=== PATIENT | female | born 1965 | race Caucasian/White ===

== ENCOUNTER → 2022-04-28 15:32 | Outpatient (CLI) | payer OTHER, SELFPAY ==
--- NOTE | 2022-04-28 15:34 | DI.CT.S_ITS ---
PROCEDURE: CT LUMBAR SPINE WO CON INDICATIONS: Low back pain, unspecified TECHNIQUE: Noncontrast 3 mm thick sections acquired from the T12 level to the sacrum. Sagittal and coronal reformats were constructed. For radiation dose reduction, the following was used: automated exposure control. COMPARISON: None. FINDINGS: Image quality: Excellent. Bones: There is loss of normal lumbar lordosis. There is roughly 7 mm of retrolisthesis of L4 on L5. There is severe disc space narrowing at L4-L5 associated with moderate adjacent discogenic osteosclerosis at L4 and L5. Mild facet hypertrophy at L4-L5. There is moderate diffuse disc bulge present at L4-L5. There is moderate canal stenosis , moderate left foraminal stenosis, and severe right foraminal stenosis associated with probable right L4 nerve root compression. Mild disc and facet disease at the remaining lumbar levels, causing mild canal and foraminal stenoses. No acute vertebral body compression fractures. No suspicious lytic or blastic bony lesions. No pars defects. Soft tissues: No retroperitoneal masses or hematomas. Visualized aorta is normal in caliber. IMPRESSION: 1. Disc and facet disease at L4-L5, causing moderate canal stenosis, as well as right greater than left foraminal stenosis associated with probable intraforaminal nerve root compression. Recommend correlation with clinical symptoms to ascertain relevance of this finding. These findings could be confirmed with MRI, if clinically indicated. Dictated by: Zeb Sewell M.D. on 04/29/2022 at 8:58 Approved by: Zeb Sewell M.D. on 04/29/2022 at 9:05
== END ==
PROVIDERS: Referring Provider Anesthesiology Pain Medicine; Visit Provider Anesthesiology Pain Medicine
DX: M51.36 Other intervertebral disc degeneration, lumbar region (principal); M48.061 Spinal stenosis, lumbar region without neurogenic claudication; M54.50 Low back pain, unspecified
CPT/HCPCS: 72131

== ENCOUNTER → 2023-03-22 10:42 | Outpatient (CLI) | payer OTHER, SELFPAY ==
--- NOTE | 2023-03-22 | DI.MRI.S_ITS ---
PROCEDURE: MR LUMBAR SPINE WO CON INDICATIONS: Low back pain, unspecified TECHNIQUE: Noncontrast sagittal T1 spin echo and T2 fast echo, sagittal STIR, and T2 fast spin echo through the lumbar spine. In cases with scoliosis, additional coronal T2 fast spin echo may be performed. COMPARISON: None. FINDINGS: Image quality: Excellent. Alignment and Curvature: There is normal bony alignment. Bone Marrow: Marrow is of normal overall signal. No acute vertebral body compression fractures. Spinal Cord: Conus medullaris terminates at the L1 level. Visualized cord demonstrates normal signal and size. Paraspinous Soft Tissues: No paravertebral masses. Disc space narrowing at T9-10, T10-11, and T11-12 are visualized on sagittal images only. T12-L1: No significant disc bulge. The foramina and central canal are patent. L1-L2: No significant disc bulge. The foramina and central canal are patent. L2-L3: The disc is mildly desiccated. Diffuse disc bulge causes mild bilateral foraminal stenosis. L3-L4: The disc is desiccated. Endplate degenerative changes. Diffuse disc bulge causes moderate bilateral foraminal stenosis. Facet and ligamentum flavum hypertrophy cause severe central canal stenosis. L4-L5: The disc is desiccated with a diffuse disc bulge and disc osteophytes with Modic type 3 endplate changes. Facet and ligamentum flavum hypertrophy. Severe bilateral foraminal stenosis. Severe central canal stenosis. L5-S1: No significant disc bulge. The foramina and central canal are patent. IMPRESSION: 1. Cervical spondylosis most prominent at C3-4, and C4-5 causing foraminal and central canal stenosis as detailed above. 2. Severe central canal stenosis at L3-4 and L4-5. Dictated by: Broderick Turcios M.D. on 03/22/2023 at 11:42 Approved by: Broderick Turcios M.D. on 03/22/2023 at 11:48
== END ==
PROVIDERS: PCP Nurse Practitioner; Referring Provider Anesthesiology Pain Medicine; Visit Provider Anesthesiology Pain Medicine
DX: M47.816 Spondylosis without myelopathy or radiculopathy, lumbar region (principal); M48.061 Spinal stenosis, lumbar region without neurogenic claudication; M54.50 Low back pain, unspecified; M49.86 Spondylopathy in diseases classified elsewhere, lumbar region
CPT/HCPCS: 72148